=== PATIENT | male | born 1960 | race American Indian/Alaskan Native ===

== ENCOUNTER 2017-06-20 08:33 | Outpatient (CLI) | payer OTHER ==
--- NOTE | 2017-06-20 09:46 | Ultrasound Report ---
ULTRASOUND RENAL BILATERAL HISTORY: Chronic kidney disease, stage III. TECHNIQUE: transabdominal ultrasound with color Doppler interrogation. FINDINGS: The right kidney measures 9.9cm. Right renal cortex: 2.1cm. The left kidney measures 11.0cm. Left renal cortex: 2.0cm. The kidneys are normal size, contour and position. There is increased renal parenchymal echotexture bilaterally. Corticomedullary differentiation is preserved. No evidence for cystic disease, mass, hydronephrosis or perinephric fluid. The views of the bladder and the region of the ureters appear normal. IMPRESSION: Slightly echogenic kidneys consistent with nonspecific renal parenchymal disease. No obstructive uropathy.
== END 2017-06-20 08:34 | disposition home or self-care (01) ==
LOC: US 08:33
PROVIDERS: ATTEND Internal Medicine Nephrology
DX: N18.3 Chronic kidney disease, stage 3 (moderate) (principal)
CPT/HCPCS: 76770